=== PATIENT | male | born 1985 ===

== ENCOUNTER 2022-11-04 10:20 | Day surgery (SDC) | payer BC, OTHER ==
[~2022-11-04] VITALS: Ht 193 cm; Wt 88.2 kg
[2022-11-04] MEDS ORDERED: OMEP20ER (11:07)
--- NOTE | 2022-11-04 12:05 | NUR ---
11/04/22 1205 Shaye Hernandez IV REMOVED AND INTACT WNL
== END 2022-11-04 12:05 | disposition home or self-care (01) ==
LOC: ORSCSDS 10:20
PROVIDERS: Student in an Organized Health Care Education/Training Program
PROC: 0DB58ZX Excision of Esophagus, Via Natural or Artificial Opening Endoscopic, Diagnostic (ICD-10-PCS; principal; 2022-11-04 11:45)
DX: K21.00 Gastro-esophageal reflux disease with esophagitis, without bleeding (principal); R13.10 Dysphagia, unspecified; K22.2 Esophageal obstruction; Z79.899 Other long term (current) drug therapy
CPT/HCPCS: 88305; J2250; J2704; J7120